=== PATIENT | female | born 1990 | race Caucasian/White ===

== ENCOUNTER → 2018-02-21 13:52 | Outpatient (REF) | payer MEDICAID, SELFPAY ==
[2018-02-21 21:28] LABS: ALT 46 U/L (12-78); AST 27 U/L (15-37); Albumin 3.9 g/dL (3.4-5.0); Alkaline Phosphatase 106 U/L (46-116); Anion Gap 6.3 mmol/L (3-11); BUN 11 mg/dL (7-18); Bilirubin, Total 0.2 mg/dL (0.2-1.0); CO2 29.7 mmol/L (21.0-32.0); Calcium 9.6 mg/dL (8.5-10.1); Chloride 104 mmol/L (98-107); Glucose 104 mg/dL (70-100); Sodium 140 mmol/L (136-145); Total Protein 7.9 g/dL (6.4-8.2)
== END ==
LOC: NCHCN 13:52
PROVIDERS: PCP Internal Medicine; Visit Provider Nurse Practitioner Family
DX: R10.9 Unspecified abdominal pain (principal); N92.6 Irregular menstruation, unspecified
CPT/HCPCS: 80053

== ENCOUNTER → 2018-02-28 00:46 | Outpatient (CLI) | payer MEDICAID, SELFPAY ==
--- NOTE | 2018-02-28 07:17 | DI.REPORT_ITS ---
SYMPTOM/DIAGNOSIS: ABD PAIN, RLQ R10.9, IRREGULAR MENSES ABDOMINAL AND PELVIC ULTRASOUND: PELVIC ULTRASOUND: Transabdominal and transvaginal study. The uterus measures 8 cm in length, 3.1 cm in height and 3.5 cm in width with an endometrial stripe thickness of 3.4 mm. The right ovary measures 3.1 x 2.0 x 2.9 cm and contains follicular cysts. The left ovary measures 3.5 x 3.2 x 3.6 cm and contains a 2.7 x 2.8 x 2.7 cm cyst. There is no evidence of free fluid. SUMMARY: A 2.7 x 28 x 2.7 cm left ovarian cyst is demonstrated. The examination is otherwise unremarkable. ABDOMINAL ULTRASOUND: The aorta and vena cava are normal. The liver is somewhat enlarged and echogenic consistent with fatty infiltration. The portal vein is normal. The gallbladder is unremarkable. There are no stones or ductal dilatation. The pancreas is normal. The kidneys are unremarkable and the spleen is normal. There is no evidence of pelvic fluid. SUMMARY: Enlarged fatty liver is demonstrated. Nil else.
== END ==
PROVIDERS: PCP Internal Medicine; Visit Provider Nurse Practitioner Family
DX: R10.31 Right lower quadrant pain (principal); N92.6 Irregular menstruation, unspecified; N83.292 Other ovarian cyst, left side
CPT/HCPCS: 76700; 76856

== ENCOUNTER 2018-08-29 15:26 | Outpatient (CLI) | payer MEDICAID, SELFPAY ==
[2018-08-29 17:24] LABS: Vitamin D 25 Total 8.3 ng/ml (30-100)
[2018-08-29 17:27] LABS: TSH (W/Ref FT4) 2.84 uIU/mL (0.358-3.74); Vitamin B12 484 pg/mL (193-986)
== END 2018-08-29 15:46 ==
PROVIDERS: PCP Internal Medicine; Visit Provider Obstetrics & Gynecology Gynecology
DX: F32.9 Major depressive disorder, single episode, unspecified (principal)
CPT/HCPCS: 36415; 82306; 82607; 84443

== ENCOUNTER 2018-09-14 10:39 | Outpatient (CLI) | payer MEDICAID, SELFPAY ==
[2018-09-14 12:08] LABS: D-Dimer > 7500 ng/mlFEU (<500)
== END 2018-09-14 10:59 ==
PROVIDERS: PCP Internal Medicine; Visit Provider Nurse Practitioner
DX: R21 Rash and other nonspecific skin eruption (principal)
CPT/HCPCS: 36415; 85379

== ENCOUNTER 2018-09-14 12:49 | Emergency (ER) | payer MEDICAID, SELFPAY ==
[2018-09-14 12:58] VITALS: BP 134/81; PULSE 71; RESP 16; TEMP 37; O2SAT 97
[2018-09-14 13:12] VITALS: RESP 14
--- NOTE | 2018-09-14 13:37 | W.ED.GENAD ---
Discharge Plan Disposition Patient Disposition: HOME Condition: Stable Discharge Details Chief Complaint: Vascular Clinical Impression: Left leg pain Primary Care Provider: Lakhwinder Anand ED Provider: Shirley Jamison Home Meds and New Rx's Prescriptions: New Eliquis 5 mg tablet 10 mg PO BID 7 Days Qty: 28 RF: 0 Continued acetaminophen [Tylenol] 325 mg capsule 325 mg PO Q4H PRNRF: 0 ibuprofen [Advil] 200 mg tablet 200 mg PO QID PRNRF: 0 norgestimate-ethinyl estradiol [Sprintec (28)] 0.25-35 mg-mcg tablet 1 tab PO DAILY Qty: 84 RF: 5 fluoxetine 20 mg capsule 20 mg PO DAILY Qty: 30 RF: 2 Discharge Instructions Instructions: Deep Venous Thrombosis (ED), Leg Pain (ED) Additional Instructions: You were given instructions for a deep vein thrombosis. You may not have a DVT but with your leg pain and elevated d dimer test, it is best that we treat you for a DVT. Return to the hospital on Sunday for your left leg ultrasound. Take the Eliquis as directed. If your ultrasound is negative on Sunday, you can stop the Eliquis. You will follow-up in the emergency department after your ultrasound for the results. Return to the emergency department at anytime with any worsening or new concerning symptoms. Discharge Data Discharge Physician: Shirley Jamison Medical Decision Making 28-year-old female with left calf pain for the past 13 days and an elevated d-dimer blood test greater than 7500 today from the hospital lab who presents for evaluation. She is on oral contraceptive pills, but no other DVT/PE risk factors. She has a localized area of left calf pain and tenderness but no obvious edema. She is neurovascular intact. She has some pain in her left great toe and left knee which may be due to altered gait as her back pain is worse with walking causing her to alter her stance. There is no evidence of infection or trauma. Her urine test was negative. I obtained coagulation studies which were negative. Discussed with patient that we have no ultrasound available on the weekend, but that we can treat with oral versus IV anticoagulation, and she would rather take the oral medication. We will send with a prescription for Eliquis 10 mg p.o. twice daily for a total of 7 days. Will order a venous ultrasound for patient to return to the hospital Gideon morning for test and f/u in the emergency department for results. HPI General Mode of arrival: ambulatory. Date/Time Provider Initiated Documentation: 09/14/18 13:00. Limitations to Documentation: no limitations. Information obtained by: patient. HPI Narrative: Patient is a 28-year-old female who presents to the ED with a complaint of left calf pain for the past 13 days. Patient states the pain is localized to an area in the left mid posterior lateral calf. She states pain is worse with standing and walking. She states she thinks it may have started walking on her foot abnormally which is now cause pain in her left first toe and knee radiating into her proximal thigh. She denies any known injury, fever, chest pain, shortness of breath, rash, recent travel, recent surgery. She takes oral contraceptive pills. Patient states she had her annual physical exam with her primary care doctor 4 days ago and had mentioned that she had this left calf pain. She was diagnosed with a possible muscle strain but was also referred for a d-dimer blood test which she had today which is elevated greater than 7500. Patient states she was called by her PCP office today and advised to come to the emergency department for evaluation due to the elevated d dimer blood test. Related Data Home Medications Medication Instructions Recorded Confirmed acetaminophen 325 mg capsule 325 mg PO Q4H PRN 05/21/18 09/14/18 ibuprofen 200 mg tablet 200 mg PO QID PRN 05/21/18 09/14/18 norgestimate 0.25 mg-ethinyl 1 tab PO DAILY #84 tab 08/15/18 09/14/18 estradiol 35 mcg tablet fluoxetine 20 mg capsule 20 mg PO DAILY #30 cap 09/11/18 09/14/18 apixaban [Eliquis] 10 mg PO BID 7 Days #28 tab 09/14/18 Previous Rx's Medication Instructions Recorded norgestimate 0.25 mg-ethinyl 1 tab PO DAILY #84 tab 08/15/18 estradiol 35 mcg tablet fluoxetine 20 mg capsule 20 mg PO DAILY #30 cap 09/11/18 apixaban [Eliquis] 10 mg PO BID 7 Days #28 tab 09/14/18 Allergies Allergy/AdvReac Type Severity Reaction Status Date / Time bupropion [From Wellbutrin] Allergy Severe Swelling/Ed Unverified 09/14/18 13:01 nikhil General Stated Complaint: Vascular MELY: 3 Review of Systems Review of Systems All systems reviewed & are unremarkable except as noted in HPI and below Constitutional Reports as per HPI, Denies chills and Denies fever(s) Eyes Denies blurry vision ENT Denies dizziness, Denies sore throat and Denies throat swelling Cardiovascular Denies chest pain and Denies dyspnea Respiratory Denies cough and Denies dyspnea Gastrointestinal Denies abdominal pain, Denies diarrhea and Denies vomiting Genitourinary Denies hematuria and Denies dysuria Musculoskeletal Denies back pain and Denies numbness Integumentary/Breasts Denies lesions and Denies rash Neurologic Denies dizziness, Denies focal weakness and Denies numbness Allergic/Immunologic Denies throat swelling [facility] Medical History Candidal intertrigo (Acute) Abdominal pain (Acute) Irregular menses (Acute) Depression (Acute) Fatty (change of) liver, not elsewhere classified (Acute) Social History household members: family and other details: 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 parents housing: house number of children: 0 highest education level completed: Master's degree 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al status: unemployed 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: Taking [employer]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 [employer] sexually active: No frequency: daily duration: 15-30 minutes/day Smoking and Tabacco status: Never Pasive smoking exposure: No alcohol intake: never substance use type: does not use Helmet use: Yes working smoke detector in home: Yes firearms in home: No victim of physical abuse: No Female Reproductive History Menstrual Age of Menarche: 11 Duration of menses: 3-5 days control method: none (Currently not sexually active) and pills History History 0 Para Hx # Term Pregnancies Multiple births Hx # Pregnancies Ectopic pregnancies AB induced Hx Number of Living Children AB spontaneous Exam Const General: cooperative, healthy appearing and no acute distress HENMT Head: normal to inspection Face and sinus: normal facial exam Eyes General: appearance normal, both eyes and all related structures Neck Neck: normal visual inspection and No submandibular swelling Lymphatic: no lymphadenopathy noted Chest Chest: normal inspection of the chest and no tenderness Resp Effort & Inspection: normal respiratory effort and able to speak in complete sentences Auscultation: clear to auscultation bilaterally Cardio Rate: regular rate Rhythm: regular rhythm GI Inspection: normal to inspection Palpation: soft, not firm, not rigid and nontender Auscultation: normal bowel sounds Skin General skin exam: no rashes or lesions noted Neuro General: alert, awake and oriented x3 Cognition: normal cognition Speech: speech normal Motor: muscle tone normal throughout Sensory Exam: no sensory deficits noted Extrem General: normal to inspection, full ROM, normal capillary refill, no pedal edema, calf tenderness on the left and no edema Right lower extremity: normal to inspection, full ROM and foot Details: vascular exam Details: dorsalis pedis pulse present and posterior tibial pulse present Left lower extremity: hip/thigh Details: normal to inspection and normal ROM; no tenderness, knee Details: normal to inspection, tenderness (posterior knee), normal ROM and knee ligament exam normal; no swelling, lower leg Details: tenderness Location: of the posterior calf (lateral mid leg, localized area) and no edema; no erythema, no localized swelling, no palpable cords, no abrasions, no lacerations, no ecchymosis, no crepitus, no deformity and no unusual warmth, ankle Details: normal to inspection and normal ROM; no tenderness and no swelling and foot Details: vascular exam Details: dorsalis pedis pulse present and posterior tibial pulse present Other: Positive Kenneth's sign on left but pain worse in L calf with active dorsiflexion. Psych Appearance: grossly normal Mental Status: mental status grossly normal Speech and Movement: speech and movement normal Affect: normal affect Course Vital Signs Temperature 98.6 F 09/14/18 12:58 Pulse 71 09/14/18 12:58 Respiratory Rate 16 09/14/18 12:58 Blood Pressure 134/81 09/14/18 12:58 Pulse Oximetry 97 09/14/18 12:58 Temperature 98.6 F 09/14/18 12:58 Temperature Source Skin 09/14/18 12:58 Pulse 71 09/14/18 12:58 Respiratory Rate 14 09/14/18 13:12 Respiratory Effort 09/14/18 13:12 Respiratory Depth Normal 09/14/18 13:12 Respiratory Pattern Normal 09/14/18 13:12 Blood Pressure 134/81 09/14/18 12:58 Blood Pressure Position Sitting 09/14/18 12:58 Pulse Oximetry 97 09/14/18 12:58 Oxygen Delivery Method Room Air 09/14/18 12:58 Oxygen Flow Rate 0 09/14/18 12:58 Pain Level 9 09/14/18 12:58
[2018-09-14 14:26] LABS: INR 0.9 (0.9-1.1); PTT Activated 23.2 sec (21.0-31.4); Prothrombin Time 9.3 sec (9.3-11.0)
[2018-09-14 15:24] VITALS: BP 136/79; PULSE 66; RESP 14; TEMP 36.6; O2SAT 96
--- NOTE | 2018-09-16 08:25 | CMPROGNOTE_ITS ---
Care Management Progress Note 09/16-Dr. Jamison requested assistance with a PCP (Cheng) f/u this week for DVT. Order sent to US for Sunday with patient f/u in ED for reading. Referral faxed to [facility] this am.
== END 2018-09-14 15:27 | disposition home or self-care (01) ==
PROVIDERS: Emergency Provider Physician Assistant; PCP Internal Medicine
DX: M79.605 Pain in left leg (principal)
CPT/HCPCS: 36415; 81025; 99283; 85610; 85730

== ENCOUNTER 2018-09-16 00:37 | Outpatient (CLI) | payer MEDICAID, SELFPAY ==
--- NOTE | 2018-09-16 12:32 | DI.US_ITS ---
SYMPTOMS/DIAGNOSIS: LEFT CALF PAIN X 13 DAYS, D-DIMER > 7500 LEFT LOWER EXTREMITY ULTRASOUND: The common femoral vein and saphenous vein appear free of thrombus. The mid femoral vein shows occlusive thrombus, which extends through the popliteal vein into the posterior tibial veins. No Yeager's cyst or hematoma is seen. IMPRESSION: DVT from the mid femoral vein through the calf veins.
== END 2018-09-16 00:57 ==
PROVIDERS: PCP Internal Medicine; Visit Provider Physician Assistant
DX: M79.662 Pain in left lower leg (principal); I82.412 Acute embolism and thrombosis of left femoral vein; I82.432 Acute embolism and thrombosis of left popliteal vein
CPT/HCPCS: 93971

== ENCOUNTER 2018-09-16 13:05 | Emergency (ER) | payer MEDICAID, SELFPAY ==
[2018-09-16 13:17] VITALS: BP 135/90; PULSE 79; RESP 18; TEMP 36.9; O2SAT 96
--- NOTE | 2018-09-16 13:39 | NUR.NOTE ---
patient has positive left foot pedal pulse Nursing Note:
--- NOTE | 2018-09-16 13:44 | W.ED.GENAD ---
Discharge Plan Disposition Patient Disposition: HOME Condition: Stable Discharge Details Chief Complaint: GenMedical Clinical Impression: DVT (deep venous thrombosis) Primary Care Provider: Lakhwinder Anand ED Provider: Shirley Jamison Home Meds and New Rx's Prescriptions: New Eliquis 5 mg tablet 5 mg PO BID Qty: 60 RF: 0 Continued fluoxetine 20 mg capsule 20 mg PO DAILY Qty: 30 RF: 2 Eliquis 5 mg tablet 10 mg PO BID 7 Days Qty: 28 RF: 0 Discontinued norgestimate-ethinyl estradiol [Sprintec (28)] 0.25-35 mg-mcg tablet 1 tab PO DAILY Qty: 84 RF: 5 Discharge Instructions Instructions: Deep Venous Thrombosis (ED) Additional Instructions: Finish the Eliquis 10 mg twice daily for a total of 7 days. You were given a prescription for Eliquis 5 mg twice daily to start after the total of 10 mg for 7 days. You can discuss this with your primary care doctor on your follow-up appointment on September 19 at 10:15 AM. You will also be discussing further workup for a blood clot to rule out a blood clotting disorder as a possible cause. It is possible that your oral contraceptive pill as a cause of your blood clot. Stop taking the oral contraceptive pill immediately. Use other forms of control until you follow-up with your ANCIENT ART CURATOR to discuss consideration for ParaGard IUD. Return immediately to the emergency department if you have any worsening or new concerning symptoms of shortness of breath, chest pain, dizziness or any other concerns. Discharge Data Discharge Date/Time-TO BE ENTERED AT DEPARTURE: 09/16/18 14:20 Discharge Physician: Shirley Jamison Medical Decision Making 28-year-old female with a history of left leg pain for the past 15 days who presents for results of ultrasound of her left leg today. Patient was seen here 2 days ago for the same complaint after found to have a d-dimer greater than 7500 and started on Eliquis which she states she has been taking. Her ultrasound results today noted extensive DVT from the left femoral down to the left posterior tibial veins. She states her left calf pain is mildly improved, but she still has left posterior knee pain. Patient is taking oral contraceptives which may be the cause of her DVT. She states she was taking these for an ovarian cyst and not for control as she is not sexually active. She states 2 days ago after her first dose of Eliquis, she felt dizzy, nauseous and vomited once but not since then. She denies any chest pain, shortness of breath or dizziness at any time since then. I spoke with patient's primary care doctor's office Dr. Anand and informed him of patient's extensive DVT. Patient is hemodynamically stable with no other acute complaints I do not see any acute indication for admission. We will plan to stop the control. Will follow up with patient in the office this week for reevaluation and for referral for thrombophilia workup to r/o Factor V leiden, protein S deficiency, protein C deficiency, etc. I also discussed with ANCIENT ART CURATOR Dr. Nieves and she agreed to stop the oral contraceptive pill. Recommends to hold on any hormonal contraceptive therapy at this time, and to follow-up with them for discussion of ParaGard IUD if patient is interested. Recommends to use condoms as a form of control at this time. Medical Records Medical records reviewed: Yes I reviewed the patient's medical records. Imaging Data Radiologic Study: Radiologist's impression: LEFT LOWER EXTREMITY ULTRASOUND: The common femoral vein and saphenous vein appear free of thrombus. The mid femoral vein shows occlusive thrombus, which extends through the popliteal vein into the posterior tibial veins. No Yeager's cyst or hematoma is seen. IMPRESSION: DVT from the mid femoral vein through the calf veins. HPI General Mode of arrival: ambulatory. Date/Time Provider Initiated Documentation: 09/16/18 13:08. Limitations to Documentation: no limitations. Information obtained by: patient. HPI Narrative: Patient is a 28-year-old female who presents with left calf pain for the past 15 days. Patient was seen here 2 days ago for the same complaint after she was found to have a d-dimer of greater than 7500. Patient had been seen earlier that week for a routine physical by her PCP and had complained of left calf pain and was referred to the lab for a d-dimer test. Patient was started on Eliquis here 2 days ago and told to return to the hospital today for a Doppler ultrasound. Radiology called stating that her Doppler ultrasound was positive for DVT extending from her left femoral down to her left posterior tibial veins. Patient states her pain is improved in her left calf but still present in her left knee and left great toe. She states 2 days ago approximately 1 hour after taking her first dose of Eliquis, she felt dizzy, nauseous and vomited once. She states since then she has had no complaint of chest pain, shortness of breath, dizziness, nausea or vomiting. Related Data Home Medications Medication Instructions Recorded Confirmed fluoxetine 20 mg capsule 20 mg PO DAILY #30 cap 09/11/18 09/16/18 Eliquis 10 mg PO BID 7 Days #28 tab 09/14/18 09/16/18 apixaban [Eliquis] 5 mg PO BID #60 tab 09/16/18 Previous Rx's Medication Instructions Recorded fluoxetine 20 mg capsule 20 mg PO DAILY #30 cap 09/11/18 Eliquis 10 mg PO BID 7 Days #28 tab 09/14/18 apixaban [Eliquis] 5 mg PO BID #60 tab 09/16/18 Allergies Allergy/AdvReac Type Severity Reaction Status Date / Time bupropion [From Wellbutrin] Allergy Severe Swelling/Ed Unverified 09/16/18 14:07 nikhil General Stated Complaint: GenMedical MELY: 3 Review of Systems Review of Systems All systems reviewed & are unremarkable except as noted in HPI and below Constitutional Reports as per HPI, Denies chills and Denies fever(s) Eyes Denies blurry vision ENT Denies dizziness, Denies sore throat and Denies throat swelling Cardiovascular Denies chest pain and Denies dyspnea Respiratory Denies cough and Denies dyspnea Gastrointestinal Denies abdominal pain, Denies diarrhea and Denies vomiting Genitourinary Denies hematuria and Denies dysuria Musculoskeletal Denies back pain and Denies numbness Integumentary/Breasts Denies lesions and Denies rash Neurologic Denies dizziness, Denies focal weakness and Denies numbness Allergic/Immunologic Denies throat swelling [facility] Social History household members: family and other details: 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 parents housing: house number of children: 0 highest education level completed: Master's degree 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al status: unemployed 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 [email or web address] sexually active: No frequency: daily duration: 15-30 minutes/day Smoking and Tabacco status: Never Pasive smoking exposure: No alcohol intake: never substance use type: does not use Helmet use: Yes working smoke detector in home: Yes firearms in home: No victim of physical abuse: No Female Reproductive History Menstrual Age of Menarche: 11 Duration of menses: 3-5 days control method: none (Currently not sexually active) and pills History History 0 Para Hx # Term Pregnancies Multiple births Hx # Pregnancies Ectopic pregnancies AB induced Hx Number of Living Children AB spontaneous Exam Const General: cooperative, healthy appearing and no acute distress HENMT Head: normal to inspection Face and sinus: normal facial exam Eyes General: appearance normal, both eyes and all related structures EOM: EOM intact bilaterally Neck Neck: normal visual inspection and No submandibular swelling Lymphatic: no lymphadenopathy noted Chest Chest: normal inspection of the chest and no tenderness Resp Effort & Inspection: normal respiratory effort and able to speak in complete sentences Auscultation: clear to auscultation bilaterally Cardio Rate: regular rate Rhythm: regular rhythm GI Inspection: normal to inspection Palpation: soft, not firm, not rigid and nontender Auscultation: normal bowel sounds Skin General skin exam: no rashes or lesions noted Neuro General: alert, awake and oriented x3 Cognition: normal cognition Speech: speech normal Motor: muscle tone normal throughout Sensory Exam: no sensory deficits noted Extrem General: normal to inspection, full ROM, normal capillary refill, calf tenderness on the left (minimal to moderate) and no edema Left lower extremity: hip/thigh Details: normal to inspection, knee Details: tenderness (Posterior knee); no swelling, lower leg Details: normal to inspection, tenderness Location: of the posterior calf and no edema; no erythema, no localized swelling and no palpable cords, ankle Details: normal to inspection and foot Details: vascular exam Details: dorsalis pedis pulse present and posterior tibial pulse present Psych Appearance: grossly normal Mental Status: mental status grossly normal Speech and Movement: speech and movement normal Affect: normal affect Course Vital Signs Temperature 98.4 F 09/16/18 13:17 Pulse 79 09/16/18 13:17 Respiratory Rate 18 09/16/18 13:17 Blood Pressure 135/90 09/16/18 13:17 Pulse Oximetry 96 09/16/18 13:17 Temperature 98.4 F 09/16/18 13:17 Temperature Source Skin 09/16/18 13:17 Pulse 79 09/16/18 13:17 Respiratory Rate 18 09/16/18 13:17 Respiratory Effort 09/16/18 13:38 Blood Pressure 135/90 09/16/18 13:17 Pulse Oximetry 96 09/16/18 13:17 Oxygen Delivery Method Room Air 09/16/18 13:17 Oxygen Flow Rate 0 09/16/18 13:17 Pain Level 0 09/16/18 13:17
--- NOTE | 2018-09-16 13:49 | CMPROGNOTE_ITS ---
Care Management Progress Note 09/16-Dr. Jamison requested assistance with a PCP (Dr. Anand) f/u on / this week for DVT. Dr. Jamison has spoken to Dr. Anand. Called [facility] and spoke with Yesi. Yesi scheduled Lucila for , 09/[address] Jamison aware of the appt to be placed on d/c paperwork and patient given an appt card.
== END 2018-09-16 14:20 | disposition home or self-care (01) ==
PROVIDERS: Emergency Provider Physician Assistant; PCP Internal Medicine
DX: I82.411 Acute embolism and thrombosis of right femoral vein (principal); I82.441 Acute embolism and thrombosis of right tibial vein; Z79.01 Long term (current) use of anticoagulants

== ENCOUNTER 2018-09-19 11:39 | Outpatient (CLI) | payer MEDICAID, SELFPAY ==
[2018-09-19 12:36] LABS: HGB 12.6 g/dL (12.0-15.5); Mean Corp. HGB Concentration 32.3 g/dL (32.0-36.0); Mean Corpuscular Hemoglobin 28.9 pg (27.0-33.0); Mean Corpuscular Volume 89.4 fL (80-95); Mean Platelet Volume 10.1 fL (8.0-11.0); Platelet Count 341 x1000/uL (130-400); RBC 4.36 m/cumm (4.00-5.20); RBC Distribution Width 13.9 % (11.7-14.6); White Blood Cell Count 11.02 k/cumm (4.4-10.8)
[2018-09-19 13:41] LABS: ALT 188 U/L (12-78); AST 51 U/L (15-37); Albumin 3.6 g/dL (3.4-5.0); Alkaline Phosphatase 85 U/L (46-116); Anion Gap 8.6 mmol/L (3-11); BUN 13 mg/dL (7-18); Bilirubin, Total 0.2 mg/dL (0.2-1.0); CO2 27.4 mmol/L (21.0-32.0); Calcium 9.6 mg/dL (8.5-10.1); Chloride 105 mmol/L (98-107); Glucose 105 mg/dL (70-100); Potassium 3.9 mmol/L (3.5-5.1); Sodium 141 mmol/L (136-145); Total Protein 7.9 g/dL (6.4-8.2)
[2018-09-19 15:13] LABS: PTT Activated 27.5 sec (21.0-31.4)
[2018-09-24 15:27] LABS: Factor V Leiden (R506Q) Mutat Heterozygous (Negative); Prothrombin G20210A Mutation Negative (Negative)
[2018-09-25 12:10] LABS: Misc Referral (MAYO) See Comments
== END 2018-09-19 11:59 ==
PROVIDERS: PCP Internal Medicine; Visit Provider Internal Medicine
DX: I82.412 Acute embolism and thrombosis of left femoral vein (principal)
CPT/HCPCS: 36415; 80053; 81240; 85027; 85300; 86147; 81241; 85730

== ENCOUNTER 2019-01-02 15:34 | Outpatient (CLI) | payer MEDICAID, SELFPAY ==
[2019-01-02 17:31] LABS: ALT 29 U/L (12-78); AST 17 U/L (15-37); Albumin 3.8 g/dL (3.4-5.0); Alkaline Phosphatase 97 U/L (46-116); Bilirubin, Direct 0.08 mg/dL (0.00-0.20); Bilirubin, Total 0.2 mg/dL (0.2-1.0)
[2019-01-06 09:39] LABS: Antithrombin 3, Funct. 93 % (85-125)
[2019-01-08 10:27] LABS: Protein C, Functional 140 % (71-199)
[2019-01-08 10:29] LABS: Protein S, Functional 112 % (64-147)
== END 2019-01-02 15:54 ==
PROVIDERS: PCP Internal Medicine; Visit Provider Internal Medicine
DX: R94.5 Abnormal results of liver function studies (principal); Z86.718 Personal history of other venous thrombosis and embolism
CPT/HCPCS: 36415; 80076; 85300; 85306; 86147; 85303

== ENCOUNTER 2019-05-28 13:29 | Outpatient (REF) | payer MEDICAID, SELFPAY ==
[2019-05-28 15:15] LABS: Calculated LDL 169 mg/dL; Cholesterol 231 mg/dL (50-200); HDL Cholesterol 43 mg/dL (40-60); Triglyceride 95 mg/dL (30-150)
== END 2019-05-28 13:49 ==
LOC: NCHCN 13:29
PROVIDERS: PCP Internal Medicine; Visit Provider Specialist/Technologist Athletic Trainer
DX: Z13.220 Encounter for screening for lipoid disorders (principal)
CPT/HCPCS: 80061

== ENCOUNTER 2019-11-28 15:23 | Outpatient (REF) | payer MEDICAID, SELFPAY ==
[2019-11-28 21:07] LABS: ALT 25 U/L (14-59); AST 18 U/L (15-37); Albumin 3.7 g/dL (3.4-5.0); Alkaline Phosphatase 91 U/L (46-116); Anion Gap 10.2 mmol/L (3-11); BUN 12 mg/dL (7-18); Bilirubin, Total 0.2 mg/dL (0.2-1.0); CO2 26.8 mmol/L (21.0-32.0); CREATININE 0.79 mg/dL (0.55-1.02); Calcium 9.5 mg/dL (8.5-10.1); Chloride 101 mmol/L (98-107); Glucose 83 mg/dL (74-106); Potassium 4.8 mmol/L (3.5-5.1); Sodium 138 mmol/L (136-145); Total Protein 7.7 g/dL (6.4-8.2)
== END 2019-11-28 15:43 ==
LOC: NCHCN 15:23
PROVIDERS: PCP Internal Medicine; Visit Provider Nurse Practitioner Family
DX: K76.0 Fatty (change of) liver, not elsewhere classified (principal); R94.5 Abnormal results of liver function studies
CPT/HCPCS: 80053

== ENCOUNTER 2019-12-02 00:31 | Outpatient (CLI) | payer MEDICAID, SELFPAY ==
--- NOTE | 2019-12-02 | DI.US_ITS ---
EXAM: US ABD PELV TRANSVAG NON-OB CLINICAL HISTORY: FATTY LIVER,K76.0,LT OVARIAN CYST,N83.292,IRREGULAR MENSES,N92.6 TECHNIQUE: Ultrasound performed using standard protocol. COMPARISON: US US LOWER EXTREMITY VASCULAR LT from 09/16/2018 FINDINGS: The liver is normal in echotexture. No focal hepatic lesion identified. There is no evidence of cho lelithiasis or biliary dilatation. The pancreas appears intact. Spleen is unremarkable in appearance. Kidneys are normal in size and shape with no evidence of hydronephrosis or nephrolithiasis. Abdominal aorta and IVC are of normal diameter. Pelvic scanning was performed transabdominally only at the patient's request. Uterus is unremarkable in appearance, 8 millimeter thick homogeneous endometrial stripe. The ovaries have a grossly normal follicular appearance by trans abdominal criteria.. No free fluid identified in the cul-de-sac. IMPRESSION: Negative abdominal and pelvic ultrasound. DATA REPOSITORY:
== END 2019-12-02 00:51 ==
PROVIDERS: PCP Nurse Practitioner Family; Visit Provider Nurse Practitioner Family
DX: K76.0 Fatty (change of) liver, not elsewhere classified (principal); N83.292 Other ovarian cyst, left side; N92.6 Irregular menstruation, unspecified
CPT/HCPCS: 76700; 76830; 76856

== ENCOUNTER 2020-07-20 18:50 | Outpatient (REF) | payer MEDICAID, SELFPAY ==
[2020-07-22 11:05] LABS: HIV-1/2 Ag & Ab Screen Negative (Negative)
== END 2020-07-20 19:10 ==
LOC: NCHCN 18:50
PROVIDERS: PCP Nurse Practitioner Family; Visit Provider Nurse Practitioner Family
DX: Z11.4 Encounter for screening for human immunodeficiency virus [HIV] (principal); Z00.00 Encounter for general adult medical examination without abnormal findings
CPT/HCPCS: 87389

== ENCOUNTER 2020-07-21 11:36 | Outpatient (REF) | payer MEDICAID, SELFPAY ==
[2020-07-22 04:48] LABS: Vitamin D 25 Total 13.7 ng/ml (30-100)
[2020-07-23 09:27] LABS: Hepatitis C Ab w Rflx HCV PCR Negative (Negative)
== END 2020-07-21 11:56 ==
LOC: NCHCN 11:36
PROVIDERS: PCP Nurse Practitioner Family; Visit Provider Nurse Practitioner Family
DX: E55.9 Vitamin D deficiency, unspecified (principal); Z11.59 Encounter for screening for other viral diseases
CPT/HCPCS: 82306; 86803

== ENCOUNTER 2020-12-21 01:13 | Outpatient (CLI) | payer MEDICAID, SELFPAY ==
--- NOTE | 2020-12-21 13:20 | DI.RAD_ITS ---
Exam(s) XR FOOT RT COMPLETE EXAM: XR FOOT RT COMPLETE CLINICAL HISTORY: RT FOOT PAIN, M79.671 TECHNIQUE: COMPARISON: No exams were available for comparison FINDINGS: Three views were obtained. Alignment appears within normal limits. No bony or soft tissue abnormali ty seen. IMPRESSION: RADIATION DOSE DELIVERED: Total DLP
== END 2020-12-21 01:33 ==
PROVIDERS: PCP Nurse Practitioner Family; Visit Provider Nurse Practitioner Family
DX: M79.671 Pain in right foot (principal)
CPT/HCPCS: 73630

== ENCOUNTER 2022-10-12 16:36 | Outpatient (REF) | payer MEDICAID, SELFPAY ==
[2022-10-12 21:47] LABS: Abs Immature Grans 0.02 10^3/uL (0.0-0.06); Absolute Basophil Count 0.04 10^3/uL (0.0-0.2); Absolute Eosinophil Count 0.12 10^3/uL (0.0-0.7); Absolute Lymphocyte Count 2.62 10^3/uL (1.2-3.4); Absolute Monocyte Count 0.55 10^3/uL (0.1-0.8); Absolute Neutrophil Count 6.06 10^3/uL (1.2-6.7); Basophils % 0.4; Eosinophils % 1.3; HCT 39.9 % (36.0-46.0); HGB 12.7 g/dL (11.2-15.7); Immature Grans % 0.2; Lymphocytes % 27.8; MCH 29.1 pg (27.0-33.0); MCHC 31.8 % (32.0-36.0); MCV 91 fL (80-95); MPV 10.2 fL (8.0-11.0); Monocytes % 5.8; Neutrophils % 64.5; Platelet Count 322 10^3/uL (130-400); RBC 4.37 10^6/uL (3.93-5.22); RDW-SD 43.8 fL; WBC 9.41 10^3/uL (4.4-10.8)
[2022-10-12 21:55] LABS: ALT 25 U/L (14-59); AST 17 U/L (15-37); Alkaline Phosphatase 95 U/L (46-116); Anion Gap 5.2 mmol/L (3-11); BUN 9 mg/dL (7-18); Bilirubin, Total 0.3 mg/dL (0.2-1.0); CO2 31.8 mmol/L (21.0-32.0); CREATININE 0.8 mg/dL (0.55-1.02); Calcium 9.8 mg/dL (8.5-10.1); Calculated LDL 227 mg/dL (<100); Chloride 100 mmol/L (98-107); Cholesterol 298 mg/dL (<200); Estimated GFR 99.71 (mL/min/1.73m2); Glucose 115 mg/dL (74-106); HDL Cholesterol 44 mg/dL (40-60); Potassium 3.6 mmol/L (3.5-5.1); Sodium 137 mmol/L (136-145); Total Protein 7.5 g/dL (6.4-8.2); Triglyceride 139 mg/dL (<150)
[2022-10-12 22:15] LABS: Vitamin D 25 Total 9.7 ng/mL (30-100)
== END 2022-10-12 16:37 | disposition home or self-care (01) ==
LOC: NCHCN 16:36
PROVIDERS: PCP Nurse Practitioner Family; Visit Provider Nurse Practitioner Family
DX: Z00.00 Encounter for general adult medical examination without abnormal findings (principal); L98.9 Disorder of the skin and subcutaneous tissue, unspecified; M79.645 Pain in left finger(s); M79.644 Pain in right finger(s); K76.0 Fatty (change of) liver, not elsewhere classified; E66.9 Obesity, unspecified; R51.9 Headache, unspecified; E55.9 Vitamin D deficiency, unspecified; R10.13 Epigastric pain
CPT/HCPCS: 80053; 80061; 82306; 83036; 85025

== ENCOUNTER 2022-10-31 02:39 | Outpatient (CLI) | payer MEDICAID, SELFPAY ==
--- NOTE | 2022-10-31 14:00 | NS.NUTBLAN_ITS ---
Lucila was referred to weight management education. 5'2 206 lbs BMI: 39 Labs (10/12/22): A1C: 6%, Chol: 298, LDL: 227, HDL: 44, Tri, VitD: 9.7 Meds include Vit D weekly Exercise: none Lucila recently diagnosed with pre diabetes and hyperlipidemia. Family history of DM2 and obesity. She reports that in 2018 she weighed around 160 lbs, then during cov it went up to 225 lbs due to increased portions and sedentary habits. Has lost about 20 lbs in last 3 months by cutting portions. Lucila presents with classic metabolic syndrome which can be reversed with life style changes. Educated Lucila on importance of counting and limiting total carbohydrates daily to no more than 100 grams. Provided meal plans and forms to monitor intake of macronutrients. Encouraged use of phone peng for logging meals and counting steps. Recommend working toward 10,000 steps daily to help with weight loss. Goal weight is 150-160 lbs. No follow up planned at this time.
== END 2022-10-31 02:40 | disposition home or self-care (01) ==
LOC: DS 02:40
PROVIDERS: PCP Nurse Practitioner Family; Visit Provider Dietitian, Registered
DX: E66.8 Other obesity (principal); R73.03 Prediabetes; E78.5 Hyperlipidemia, unspecified; Z71.3 Dietary counseling and surveillance
CPT/HCPCS: 97802

== ENCOUNTER 2023-04-19 16:10 | Outpatient (REF) | payer MEDICAID, SELFPAY ==
[2023-04-19 18:01] LABS: Vitamin D 25 Total 12.6 ng/mL (30-100)
== END 2023-04-19 16:11 | disposition home or self-care (01) ==
LOC: NCHCN 16:10
PROVIDERS: PCP Nurse Practitioner Family; Visit Provider Nurse Practitioner Psychiatric/Mental Health
DX: E55.9 Vitamin D deficiency, unspecified (principal)
CPT/HCPCS: 82306

== ENCOUNTER 2023-10-16 20:44 | Outpatient (REF) | payer MEDICAID, SELFPAY ==
[2023-10-16 15:51] LABS: Abs Immature Grans 0.02 10^3/uL (0.0-0.06); Absolute Basophil Count 0.03 10^3/uL (0.0-0.2); Absolute Eosinophil Count 0.29 10^3/uL (0.0-0.7); Absolute Lymphocyte Count 2.51 10^3/uL (1.2-3.4); Absolute Monocyte Count 0.52 10^3/uL (0.1-0.8); Absolute Neutrophil Count 5.18 10^3/uL (1.2-6.7); Basophils % 0.4; Eosinophils % 3.4; HCT 39.7 % (36.0-46.0); HGB 12.9 g/dL (11.2-15.7); Immature Grans % 0.2; Lymphocytes % 29.4; MCHC 32.5 % (32.0-36.0); MCV 92 fL (80-95); MPV 10.5 fL (8.0-11.0); Monocytes % 6.1; Neutrophils % 60.5; Platelet Count 288 10^3/uL (130-400); RDW 13.2 % (11.7-14.6); RDW-SD 44.8 fL; WBC 8.55 10^3/uL (4.4-10.8)
[2023-10-16 16:03] LABS: ALT 27 U/L (14-59); AST 16 U/L (15-37); Alkaline Phosphatase 86 U/L (46-116); Anion Gap 11.9 mmol/L (3-11); BUN 10 mg/dL (7-18); Bilirubin, Total 0.3 mg/dL (0.2-1.0); CO2 28.1 mmol/L (21.0-32.0); CREATININE 0.7 mg/dL (0.55-1.02); Calcium 9.8 mg/dL (8.5-10.1); Calculated LDL 169 mg/dL (<100); Chloride 102 mmol/L (98-107); Cholesterol 243 mg/dL (<200); Estimated GFR 116.31 (mL/min/1.73m2); Glucose 75 mg/dL (74-106); HDL Cholesterol 49 mg/dL (40-60); Potassium 3.8 mmol/L (3.5-5.1); Sodium 142 mmol/L (136-145); Total Protein 7.5 g/dL (6.4-8.2); Triglyceride 129 mg/dL (<150)
[2023-10-16 16:23] LABS: Hemoglobin A1C 5.8 % (<5.7)
[2023-10-16 17:12] LABS: Vitamin D 25 Total 13.8 ng/mL (30-100)
== END 2023-10-16 20:45 | disposition home or self-care (01) ==
LOC: NCHCN 20:44
PROVIDERS: PCP Nurse Practitioner Family; Referring Provider Nurse Practitioner Family; Visit Provider Nurse Practitioner Family
DX: E55.9 Vitamin D deficiency, unspecified (principal); E78.5 Hyperlipidemia, unspecified; R73.03 Prediabetes; K76.0 Fatty (change of) liver, not elsewhere classified
CPT/HCPCS: 80053; 80061; 82306; 83036; 85025

== ENCOUNTER → 2023-10-17 02:58 | Outpatient (CLI) | payer MEDICAID, SELFPAY ==
--- NOTE | 2023-10-17 | DI.US_ITS ---
Exam(s) US ABDOMEN LIMITED EXAM: US ABDOMEN LIMITED CLINICAL HISTORY: STEATOSIS OF LIVER, J76.0 TECHNIQUE: Ultrasound abdomen performed using standard protocol. COMPARISON: US US PELVIS from 12/02/2019 FINDINGS: LIVER: Normal size. Normalechogenicity. No focal liver lesions are seen.. GALLBLADDER: No evidence of cholelithiasis. No evidence of wall thickening. No pericholecystic fluid identified. FOFANA'S SIGN: Negative. BILIARY SYSTEM: No intrahepatic or extrahepatic biliary ductal dilation. RIGHT KIDNEY: Normal size. No evidence of renal calculi. No evidence of hydronephrosis. No suspicious renal mass. No cyst identified. PANCREAS: Normal where visualized. ABDOMINAL AORTA AND IVC: Visualized portions normal caliber. ASCITES: None seen. IMPRESSION: Normal sonographic appearance of the right upper quadrant. DATA REPOSITORY:
== END ==
PROVIDERS: PCP Nurse Practitioner Family; Visit Provider Surgery
DX: K76.0 Fatty (change of) liver, not elsewhere classified (principal)
CPT/HCPCS: 76705

== ENCOUNTER 2024-10-07 13:19 | Outpatient (REF) | payer MEDICAID, SELFPAY ==
[2024-10-07 14:49] LABS: Abs Immature Grans 0.02 10^3/uL (0.0-0.06); Absolute Basophil Count 0.02 10^3/uL (0.0-0.2); Absolute Eosinophil Count 0.22 10^3/uL (0.0-0.7); Absolute Lymphocyte Count 3.05 10^3/uL (1.2-3.4); Absolute Monocyte Count 0.53 10^3/uL (0.1-0.8); Absolute Neutrophil Count 3.55 10^3/uL (1.2-6.7); Basophils % 0.3 %; HCT 41.5 % (36.0-46.0); HGB 13.2 g/dL (11.2-15.7); Immature Grans % 0.3 %; Lymphocytes % 41.3 %; MCH 30.1 pg (27.0-33.0); MCHC 31.8 % (32.0-36.0); MCV 95 fL (80-95); MPV 10.4 fL (8.0-11.0); Monocytes % 7.2 %; Neutrophils % 47.9 %; Platelet Count 263 10^3/uL (130-400); RBC 4.38 10^6/uL (3.93-5.22); RDW 12.6 % (11.7-14.6); WBC 7.39 10^3/uL (4.4-10.8)
[2024-10-07 15:35] LABS: ALT 26 U/L (14-59); AST 16 U/L (15-37); Albumin 4.2 g/dL (3.4-5.0); Alkaline Phosphatase 67 U/L (46-116); Anion Gap 5.9 mmol/L (3-11); BUN 13 mg/dL (7-18); Bilirubin, Total 0.4 mg/dL (0.2-1.0); CO2 33.1 mmol/L (21.0-32.0); CREATININE 0.8 mg/dL (0.55-1.02); Calcium 9.9 mg/dL (8.5-10.1); Calculated LDL 187 mg/dL (<100); Chloride 105 mmol/L (98-107); Cholesterol 260 mg/dL (<200); Estimated GFR 98.48 (mL/min/1.73m2); Glucose 93 mg/dL (74-106); HDL Cholesterol 60 mg/dL (>or=50); Potassium 4.8 mmol/L (3.5-5.1); Sodium 144 mmol/L (136-145); Total Protein 7.6 g/dL (6.4-8.2); Triglyceride 65 mg/dL (<150); Vitamin D 25 Total 19 ng/mL (30-100)
[2024-10-07 15:38] LABS: Hemoglobin A1C 5.4 % (<5.7)
== END 2024-10-07 13:20 | disposition home or self-care (01) ==
LOC: NCHCN 13:19
PROVIDERS: PCP Nurse Practitioner Family; Visit Provider Nurse Practitioner Family
DX: E78.5 Hyperlipidemia, unspecified (principal); R73.03 Prediabetes; K76.0 Fatty (change of) liver, not elsewhere classified; E55.9 Vitamin D deficiency, unspecified
CPT/HCPCS: 80053; 80061; 82306; 83036; 85025

== ENCOUNTER 2024-11-10 01:53 | Outpatient (CLI) | payer MEDICAID, SELFPAY ==
--- NOTE | 2024-11-10 | DI.US_ITS ---
Exam(s) US ABDOMEN LIMITED EXAM: US ABDOMEN LIMITED CLINICAL HISTORY: Steatosis of liver, K76.0 TECHNIQUE: Ultrasound abdomen performed using standard protocol. COMPARISON: US US ABDOMEN LIMITED from 10/17/2023 FINDINGS: PANCREAS: Normal where visualized. LIVER: There is normal echogenicity. It is isoechoic with the adjacent right kidney. Hepatopetal fl ow in the Portal Vein. The liver measures in 15.5 cm length. No evidence of a hepatic mass. GALLBLADDER: No evidence of cholelithiasis. No evidence of wall thickening. No pericholecystic fluid identified. BILIARY SYSTEM: Common bile duct measures < 7 mm. No intrahepatic biliary ductal dilation. FOFANA'S SIGN: Negative. RIGHT KIDNEY: Kidney is normal in size. No evidence of renal calculi. No evidence of hydronephrosis. No renal mass or cyst identified. ASCITES: None seen. IMPRESSION: Normal sonographic appearance of the upper abdomen. DATA REPOSITORY:
== END 2024-11-10 02:13 ==
LOC: DI 01:54
PROVIDERS: PCP Nurse Practitioner Family; Visit Provider Nurse Practitioner Family
DX: K76.0 Fatty (change of) liver, not elsewhere classified (principal)
CPT/HCPCS: 76705

== ENCOUNTER 2024-12-02 12:16 | Outpatient (REF) | payer MEDICAID, SELFPAY ==
[2024-12-02 22:14] LABS: Vitamin D 25 Total 24 ng/mL (30-100)
== END 2024-12-02 12:17 | disposition home or self-care (01) ==
LOC: NCHCN 12:16
PROVIDERS: PCP Nurse Practitioner Family; Visit Provider Nurse Practitioner Family
DX: E55.9 Vitamin D deficiency, unspecified (principal)
CPT/HCPCS: 82306